=== PATIENT | female | born 2000 | race Caucasian/White ===

== ENCOUNTER 2025-08-26 10:26 | Emergency (ER) | payer MEDICAID ==
[~2025-08-26] VITALS: Ht 165.1 cm; Wt 82.0 kg
[2025-08-26 10:32] VITALS: O2SAT 98
[2025-08-26 10:50] VITALS: O2SAT 99
[2025-08-26] MEDS: SODIUM CHLORIDE 0.9% 1,000 ML IV ONE (12:54)
[2025-08-26 12:55] LABS: BASOPHILS % 0.7 % (0.0-2.0); EOSINOPHILS % 1.1 % (0.0-5.0); HEMATOCRIT. 41.3 % (36.0-48.0); HEMOGLOBIN. 13.7 g/dL (12.0-16.0); LYMPHOCYTES % 33.1 % (20.0-50.0); MEAN PLATELET VOLUME 8.7 fl (7.4-10.4); MONOCYTES % 11.2 % (2.0-8.0); NEUTROPHILS % 53.9 % (40.0-76.0); PLATELET 220 x1000/uL (130-400); RED BLOOD CELL COUNT 4.61 mill/uL (4.2-5.4); RED CELL DISTRIBUTION WIDTH 13.9 % (11.6-14.6)
[2025-08-26 13:06] LABS: CREATININE 0.7 mg/dL (0.6-1.0); UREA NITROGEN BLOOD 12 mg/dL (9-23)
[2025-08-26 13:08] LABS: ASPARTATE AMINOTRANSFERASE 19 IU/L (<34); BILIRUBIN DIRECT < 0.1 mg/dL (<=3.0); BILIRUBIN TOTAL 0.2 mg/dL (0.1-1.0); PROTEIN TOTAL 7.2 g/dL (6.0-8.3)
[2025-08-26 13:09] VITALS: BP 109/71; RESP 18
[2025-08-26] MEDS: KETOROLAC 30MG/ML VIAL IV ONE (13:09)
[2025-08-26] MEDS ORDERED: SULF1TAB48 MT (13:36)
[2025-08-26] MEDS ORDERED: IBUP-2437 MT (13:36)
[2025-08-26 13:58] VITALS: PULSE 98; TEMP 37.2
[2025-08-26] MEDS ORDERED: SULFAMETHOXAZOLE/TRIMETHOPRIM 800/160MG TABLET PO ONE (14:00)
[2025-08-26] MEDS: LIDOCAINE HCL 1% 20ML VIAL INFIL ONE (14:23)
== END 2025-08-26 15:23 | disposition home or self-care (01) ==
LOC: ER 10:26
DX: L02.212 Cutaneous abscess of back [any part, except buttock and flank] (principal); Z79.899 Other long term (current) drug therapy
CPT/HCPCS: 80076; 80048; 81025; 83605; 85025; 87040; 36415; 84145; 71045; 93005; 10060; 96361; 96374; 99285; J1885; J7030; Z7610 ×2; A6449